=== PATIENT | female | born 1955 | race Caucasian/White ===

== ENCOUNTER 2019-09-03 05:16 | Day surgery (SDC) | payer MEDICARE, BC ==
[2019-09-03] MEDS ORDERED: Midazolam 1 MG/ML 2 ML SDV IV ONE ×7 (05:17→06:36)
[2019-09-03] MEDS ORDERED: fentaNYL 100 MCG/2 ML SDV IV ONE ×3 (05:17→06:28)
[2019-09-03] MEDS ORDERED: Dextrose 5%-0.45% NaCl 1,000 ML IV SCH (05:45)
[2019-09-03] MEDS ORDERED: Midazolam 1 MG/ML 2 ML SDV ONE (06:03)
[2019-09-03] MEDS ORDERED: fentaNYL 100 MCG/2 ML SDV ONE (06:03)
--- NOTE | 2019-09-03 07:30 | OR ---
DATE: 09/03/2019 PROCEDURE: Total colonoscopy, NBI, and multiple cold snare polypectomies. INSTRUMENTS USED: [id number]-H190DL Olympus video colonoscope. PREMEDICATIONS: Fentanyl 100 mcg intravenous, Versed 4 mg intravenous, nasal O2 cannula. The procedure was done under pulse oximetry, BP recording, and telemetry monitor. INDICATION: The patient with Hemoccult positive stools. Colonoscopic examination is done for detection of any polypoid lesions and removal, endoscopic hemostasis therapy if needed. DESCRIPTION OF PROCEDURE: Initial rectal exam was unremarkable. Rigid anoscopy was normal. The colonoscope was passed with ease. Numerous scattered diverticula were noted in the distal left colon along with deformity. The scope was passed with ease up to the ileocecal area. Photographs were taken of the normal-appearing cecum identified by landmarks of double-bulged ileocecal folds. No bleeding was noted from any of the visualized areas at the commencement of the examination. The bowel preparation was found to be adequate, [place] scale 2 in all the regions. No stricture. No vascular ectasia. No large isolated ulcerations seen. No evidence of diffuse inflammatory bowel disease in the form of friability, contact bleeding, or ulcerations. 3 to 5 mm sized benign- appearing polyps were noted in the proximal ascending colon, mid descending colon, and hepatic flexure area. NBI views were obtained. Photographs were taken. Cold snare polypectomies were done. The tissues were retrieved and sent for histopathology. Probing the proximal sides of folds and flexures using adequate distention and clearing up the stool material, withdrawal of the scope was made. No bleeding was noted from any of the visualized areas at the completion of examination. IMPRESSION: 1. Diverticulosis. 2. Multiple colonic polyps. The patient tolerated the procedure well. [facility] /[id number]
== END 2019-09-03 08:59 | disposition home or self-care (01) ==
LOC: DL.ENDO 05:16
PROVIDERS: ATTEND Internal Medicine Gastroenterology
DX: D12.2 Benign neoplasm of ascending colon (principal); D12.3 Benign neoplasm of transverse colon; K57.30 Diverticulosis of large intestine without perforation or abscess without bleeding; E78.00 Pure hypercholesterolemia, unspecified; E78.5 Hyperlipidemia, unspecified; I10 Essential (primary) hypertension; F17.210 Nicotine dependence, cigarettes, uncomplicated; Z79.82 Long term (current) use of aspirin; Z90.49 Acquired absence of other specified parts of digestive tract; Z88.5 Allergy status to narcotic agent
CPT/HCPCS: 45385; J2250; J3010; J7042; 88305